=== PATIENT | male | born 1950 | race Caucasian/White ===

== ENCOUNTER 2019-01-07 07:05 | Day surgery (SDC) | payer BC ==
[~2019-01-07] VITALS: Ht 177.8 cm; Wt 98.5 kg
[~2019-01-07 07:05] MED LIST: AMLO5 PO; FISH OIL 1,0001 EACH PO; Imitrex100 MG PO; Ramipril10 MG PO; Simvastatin20 MG PO; THERA1 EACH PO; Travatan Z5 ML LEFTEYE; Viagra100 MG; Vitamin C100 M1 PO
--- NOTE | 2019-01-07 08:04 | NUR ---
Ambulatory in Day Surgery History, Chart, Medications and Allergies reviewed before start of procedure.Lungs clear T/O to Auscultation. Pre-Op teaching done. Pt verbalizes understanding. Patient reports completing Chlorhexadine shower X2 prior to admission to hospital.Surgical site prepped with 2% Chlorhexidine cloth wipe. Patient States Post-Procedure ride home has been arranged.
--- NOTE | 2019-01-07 11:21 | NUR ---
Patient up to Ambulate independently. Gait steady. Dressing to procedure site clean, dry, intact with no visible drainage, swelling, erythema or bruising noted. Patient States Post-Procedure ride home has been arranged. Discharged via wheelchair to private car for ride home.
--- NOTE | 2019-01-08 08:28 | NUR ---
01/08/19 0828 Ariana Vazquez VERIFICATIONS: EDIT CHART.
== END 2019-01-07 11:14 | disposition home or self-care (01) ==
LOC: ORSCMMR 07:05 → ORD 08:45 → ORSCMMR 11:14
PROVIDERS: Surgery
PROC: 0YU50JZ Supplement Right Inguinal Region with Synthetic Substitute, Open Approach (ICD-10-PCS; principal; 2019-01-07 08:45)
DX: K40.90 Unilateral inguinal hernia, without obstruction or gangrene, not specified as recurrent (principal); I10 Essential (primary) hypertension; Z79.899 Other long term (current) drug therapy
CPT/HCPCS: C1781; J0690; J1100; J2250; J2405; J3010; J7120

== ENCOUNTER → 2019-07-24 | Outpatient (CLI) | payer BC | END | disposition home or self-care (01) | LOC: PLD 14:05 → LAB SHORT 14:05 | DX: C44.529 Squamous cell carcinoma of skin of other part of trunk (principal) | CPT/HCPCS: 88305 ==

== ENCOUNTER → 2019-08-15 | Outpatient (CLI) | payer BC | END | disposition home or self-care (01) | LOC: LAB SHORT 09:05 → PLD 09:05 | DX: C76.1 Malignant neoplasm of thorax (principal) | CPT/HCPCS: 88305 ==

== ENCOUNTER → 2021-10-20 | Outpatient (CLI) | payer MEDICARE | LOC: LAB SHORT 12:42 | DX: D48.5 Neoplasm of uncertain behavior of skin (principal); L57.0 Actinic keratosis | CPT/HCPCS: 88305 ==

== ENCOUNTER 2022-03-22 09:47 | Day surgery (SDC) | payer MEDICARE ==
[~2022-03-22] VITALS: Ht 177.8 cm; Wt 90.1 kg
[~2022-03-22 09:47] MED LIST changes: +LATA.005SO BOTHEYES
== END 2022-03-22 12:15 | disposition home or self-care (01) ==
LOC: ORSCSDS 09:47
PROVIDERS: Surgery
PROC: 0DBM8ZX Excision of Descending Colon, Via Natural or Artificial Opening Endoscopic, Diagnostic (ICD-10-PCS; principal; 2022-03-22 11:00)
DX: Z12.11 Encounter for screening for malignant neoplasm of colon (principal); Z86.010 Personal history of colon polyps; D12.4 Benign neoplasm of descending colon; K21.9 Gastro-esophageal reflux disease without esophagitis; E78.5 Hyperlipidemia, unspecified; I10 Essential (primary) hypertension; Z79.899 Other long term (current) drug therapy
CPT/HCPCS: 88305; J2704; J7120

== ENCOUNTER 2023-11-15 14:37 | Day surgery (SDC) | payer MEDICARE ==
[~2023-11-15] VITALS: Ht 177.8 cm; Wt 97.5 kg
[~2023-11-15 14:37] MED LIST changes: +Balanced Salt Epinephrine Irrigation Solution 500 mL IR SCH; +Lidocaine HCl/Pf 1% 5 ML VIAL XX SCH; +Moxifloxacin HCL 0.5 MG/0.1 ML 0.4MLSYR LEFTEYE SCH; +NS 500 ML IV ONE; +PHENYLEPHRINE\\TROPICAMIDE\\TETRACAINE OPHTHALMIC DILATING SOLN LEFTEYE PRN; +Povidone-Iodine 450 DROP/30 ML Solution LEFTEYE SCH; +Povidone-Iodine 450 DROP/30 ML Solution ONE; +Triamcinolone Inj Susp 40 MG / ML 1ML Vial INJ SCH; +Triamcinolone Inj Susp 40 MG / ML 1ML Vial ONE
[2023-11-15] MEDS ORDERED: COLCHICINE0.6 MG PO (14:54)
--- NOTE | 2023-11-15 14:58 | NUR ---
11/15/23 1458 Edilia Reyna AT 1456 PLEDGET AT 1450
[2023-11-15] MEDS ORDERED: NS 500 ML IV ONE (15:03)
[2023-11-15] MEDS ORDERED: Tetracaine HCl 0.5% Opth Soln 15 ml XX ONE (15:45)
[2023-11-15] MEDS ORDERED: Midazolam HCl 1MG / ML 2ML Vial ONE (15:46)
[2023-11-15 16:18] VITALS: BP 119/90
== END 2023-11-15 16:32 | disposition home or self-care (01) ==
LOC: ORSCSDS 14:37
PROVIDERS: Ophthalmology
PROC: 08RK3JZ Replacement of Left Lens with Synthetic Substitute, Percutaneous Approach (ICD-10-PCS; principal; 2023-11-15 16:00)
DX: H25.13 Age-related nuclear cataract, bilateral (principal); H52.202 Unspecified astigmatism, left eye; I10 Essential (primary) hypertension; Z79.899 Other long term (current) drug therapy
CPT/HCPCS: J2250; J3301; J7040; V2632

== ENCOUNTER 2023-11-22 14:44 | Day surgery (SDC) | payer MEDICARE ==
[~2023-11-22] VITALS: Ht 177.8 cm; Wt 96.5 kg
[~2023-11-22 14:44] MED LIST changes: +COLCHICINE0.6 MG PO; +Midazolam HCl 1MG / ML 2ML Vial ONE; -Moxifloxacin HCL 0.5 MG/0.1 ML 0.4MLSYR LEFTEYE SCH; +Moxifloxacin HCL 0.5 MG/0.1 ML 0.4MLSYR RIGHTEYE SCH; -PHENYLEPHRINE\\TROPICAMIDE\\TETRACAINE OPHTHALMIC DILATING SOLN LEFTEYE PRN; +PHENYLEPHRINE\\TROPICAMIDE\\TETRACAINE OPHTHALMIC DILATING SOLN RIGHTEYE PRN; -Povidone-Iodine 450 DROP/30 ML Solution LEFTEYE SCH; +Povidone-Iodine 450 DROP/30 ML Solution RIGHTEYE SCH
[2023-11-22] MEDS ORDERED: NS 500 ML IV ONE (14:47)
[2023-11-22] MEDS ORDERED: FentaNYL Citrate 50 MCG/ML 2 ML Injection ONE (15:54)
[2023-11-22] MEDS ORDERED: Tetracaine HCl 0.5% Opth Soln 15 ml RIGHTEYE ONE (15:58)
[2023-11-22 16:19] VITALS: BP 119/96
== END 2023-11-22 16:29 | disposition home or self-care (01) ==
LOC: ORSCSDS 14:44
PROVIDERS: Ophthalmology
PROC: 08RJ3JZ Replacement of Right Lens with Synthetic Substitute, Percutaneous Approach (ICD-10-PCS; principal; 2023-11-22 16:00)
DX: H25.11 Age-related nuclear cataract, right eye (principal); H52.201 Unspecified astigmatism, right eye; Z96.1 Presence of intraocular lens; I12.9 Hypertensive chronic kidney disease with stage 1 through stage 4 chronic kidney disease, or unspecified chronic kidney disease; N18.30 Chronic kidney disease, stage 3 unspecified; E78.00 Pure hypercholesterolemia, unspecified; K21.9 Gastro-esophageal reflux disease without esophagitis; N40.0 Benign prostatic hyperplasia without lower urinary tract symptoms; Z79.899 Other long term (current) drug therapy; Z86.73 Personal history of transient ischemic attack (TIA), and cerebral infarction without residual deficits
CPT/HCPCS: J2250; J3010; J3301; J7040; V2632